=== PATIENT | female | born 1985 | race African-American/Black ===

== ENCOUNTER 2018-12-18 10:00 | Emergency (ER) | payer OTHER ==
[~2018-12-18] VITALS: Ht 175.3 cm; Wt 81.7 kg
[2018-12-18] MEDS ORDERED: HALOPERIDOL 2 MG2 MG PO (10:52)
[2018-12-18] MEDS ORDERED: VISTARIL 25 MG25 M1 PO (10:53)
[2018-12-18] MEDS ORDERED: SEROQUEL XR 20200 MG PO (10:53)
[2018-12-18] MEDS ORDERED: WELLBUTRIN XL300 MG PO (10:54)
[2018-12-18 11:04] LABS: ABSOLUTE NEUTROPHILS 8.5 thou/uL (1.4-8.2); EOSINOPHILS 1.4 % (0.0-3.0); HEMATOCRIT 35.4 % (37.0-47.0); HEMOGLOBIN 11.9 gm/dL (12.0-15.0); MCH 29.2 pg (26.0-34.0); MCHC 33.7 g/dL (28.0-37.0); MCV 86.4 fL (80.0-100.0); MONOCYTES 6.8 % (1.0-8.0); PLATELET COUNT 264 thou/uL (150-400); POLYS 74.8 % (36.0-66.0); WBC 11.4 thou/uL (4.0-11.0)
[2018-12-18 11:09] LABS: URINE BILIRUBIN NEGATIVE (Negative); URINE BLOOD NEGATIVE (Negative); URINE CLARITY CLEAR; URINE COLOR YELLOW; URINE GLUCOSE-RANDOM* NEGATIVE (Negative); URINE KETONES NEGATIVE (Negative); URINE LEUKOCYTES 1+ (Negative); URINE NITRITE NEGATIVE (Negative); URINE PROTEIN (DIPSTICK) NEGATIVE (Negative); URINE UROBILINOGEN 0.2 E.U./dl (0.2-1.0)
[2018-12-18 11:17] LABS: APTT 27.5 Seconds (24.5-32.8); PROTIME 10.3 Seconds (9.3-11.4)
[2018-12-18 11:18] LABS: AMP/METHAMP Negative (Negative); BARBITURATES Negative (Negative); BENZODIAZEPINES Negative (Negative); COCAINE Negative (Negative); METHADONE Negative (Negative); OPIATES Negative (Negative); PCP Negative (Negative)
[2018-12-18 11:22] LABS: ANION GAP 10 mmol/L (7-16); BUN 13 mg/dL (7-18); CALCIUM 9.5 mg/dL (8.5-10.1); CHLORIDE 102 mmol/L (98-107); CO2 27 mmol/L (21-32); CREATININE 1.3 mg/dL (0.6-1.0); GLUCOSE 92 mg/dL (74-106); POTASSIUM 4.5 mmol/L (3.5-5.1); SODIUM 139 mmol/L (136-145)
[2018-12-18 11:26] LABS: SQUAMOUS >10 Many /LPF (0-3)
[2018-12-18 11:27] LABS: BACTERIA 1-9 Few /HPF (None Seen); CASTS None Seen /LPF (None Seen); CRYSTALS None Seen /LPF (None Seen); URINE RBC None Seen /HPF (0-2); URINE WBC 6-15 Few /HPF (0-5)
[2018-12-18 11:32] LABS: ALBUMIN 3.7 g/dL (3.4-5.0); SGOT 11 U/L (15-37); SGPT 13 U/L (30-65); TOTAL BILIRUBIN 0.3 mg/dL (<0.1-1.0); TOTAL PROTEIN 8.2 g/dL (6.4-8.2); TROPONIN-I <0.06 ng/mL (<0.06)
[2018-12-18] MEDS ORDERED: HALOPERIDOL 5 MG5 MG PO (13:22)
[2018-12-18] MEDS ORDERED: QUETIAPINE FUM200 MG PO (13:24)
[2018-12-18] MEDS ORDERED: SPRINTEC1 EACH PO (13:27)
[2018-12-18] MEDS ORDERED: PHARMACY (13:28)
--- NOTE | 2018-12-18 16:26 | EKG ---
[place] [address] [facility] [place] [address] ELECTROCARDIOGRAM REPORT Name: MINNIE LOPEZ Room [facility]: [facility] [id number] ������������������ Admission: 12/18/18 ������������������ Attend Phys: Discharge: ������������������ Date of : 89 Report #: [id number] ����������������������������������������������������������������� [id number] THIS REPORT FOR: //name// [facility] ED Test Date: 2018-12-18 Test Time: 11:07:10 Pat Name: MINNIE LOPEZ Department: Room: Gender: F Concessions Manager: SAUL : 1985 Requested By: Petr Alcazar Order Number: [id number] MD: Hieu Jackson Measurements Intervals [place] Rate: 90 P: 33 IN: 111 QRS: 20 QRSD: 86 T: 18 QT: 361 QTc: 442 Interpretive Statements Sinus rhythm Borderline short IN interval Baseline wander in lead(s) V1 No previous ECG available for comparison Electronically Signed On 12-18-2018 16:26:04 CDT by Hieu Jackson [email or web address] ��������������������������������������������� <ELECTRONICALLY SIGNED> ���������������������������������������� By: Hieu Jackson MD ��������������������������������������������� 12/18/18 1626 [id number] [id number] MD JARROD Baig
[2018-12-18 20:02] VITALS: BP 112/68
--- NOTE | 2018-12-24 12:04 | HC ---
[facility] [place] [address] CONSULTATION Name: MINNIE LOPEZ Room #: DEP MGely#: [id number] Admission: 12/18/18 ������������������ Attend Phys: Discharge: 12/18/18 ������������������ Date of : [birth year] Report #: [id number] THIS REPORT FOR: //name// CC: [facility] physician/PCP Petr Alcazar DATE OF SERVICE: 12/18/2018 HISTORY OF PRESENT ILLNESS: This is a 33-year-old female patient who indicated that she started having some speech difficulty yesterday. She actually said it is going on longer than that, but the family is pretty certain it just happened yesterday. I do not know if it was acute in onset. She was worked up by Emergency Room physician initially. She underwent a CT head and CT angiogram. Emergency Room physician initially did a CT scan of the head, which demonstrated question of lesion, then he did CT angiogram and that was read as some lesions and the diesel bus mechanic did not think that it was typical for stroke. Then, he did an MRI of the brain and then they thought it was consistent with stroke. She does not have much predisposing factor for stroke. REVIEW OF SYSTEMS: Mostly positive for bipolar disorder. She does have a vascular risk factor of smoking, but that is the main risk factor she has. PAST MEDICAL HISTORY: Negative for stroke, but is positive for bipolar disorder. SOCIAL HISTORY: She has a large family here and she smokes. PHYSICAL EXAMINATION: Indicate she is alert. She is markedly aphasic. It takes a lot of effort to bring some words out. That makes the examination very difficult. I believe she has slight facial right side and she has slight weakness on the right side, but position sense appeared to be intact. There is no meningeal sign. There is no carotid bruit in this patient. I reviewed the MRI films myself and then reviewed the films with the radiologist. This is pretty unusual patient. She does have definite abnormality in the brain. They show up on diffusion T2-weighted and ADC maps. They can be stroke, but if they are stroke, then probably embolic. Other etiologies cannot be fully excluded in this patient. If it is a stroke, further workup need to be determined what the etiology of the stroke is. RECOMMENDATIONS: 1. I had asked for a stat echocardiogram with a bubble study. This is to see if she has some obvious pathology like endocarditis, a thrombus or patent foramen ovale, which can cause her these strokes. That has not been done yet. If the echocardiogram does not show any obvious cause for her stroke and we cannot document any atrial fibrillation, then she will need the spinal tap to [address] [address] CONSULTATION Name: MINNIE LOPEZ Room #: DEP JESSE Gonzales#: [id number] Admission: 12/18/18 ������������������ Attend Phys: Discharge: 12/18/18 ������������������ Date of : 89 Report #: [id number] exclude any pathology there. She may or may not need an angiogram to look for vasculitis because CT angiogram does not appear to be showing at least a large vessel disease. The problem we are facing in this patient is that if spinal tap need to be done, she will be predisposed to uncal herniation because of a temporal lobe lesion and we do not have any Neurosurgery backup. If she needs to be anticoagulated for any indication from the heart, she is young, she is female and strokes can become hemorrhagic and we do not have any neurosurgical backup. I discussed that aspect with the family. Presently, she will be stable. We have not been able to do the echocardiogram and I talked to the Emergency Room physician again that we do need the echocardiogram stat in this patient and it was ordered long time ago. They talked about transferring her to [facility] or and the family is aware of that option. Since it is such an unusual case, it will be nice to get those films reviewed by neuroradiologist and patient be seen and managed by somebody sub-specializing in Vascular Neurology. As I understand from them, they are considering transfer and if she is transferred then I will leave the management to them. Otherwise, I would like to give her some fluid to bump up her blood pressure, get an echocardiogram and then decide about the further management. More than 50 minutes of time was spent taking care of this patient today and majority of that time was spent counseling and coordinating the patient's care. ��������������������������������������������� <ELECTRONICALLY SIGNED> ���������������������������������������� By: Tristian Horton MD ��������������������������������������������� 12/24/18 1204 [id number] Tristian Horton MD /nt
== END 2018-12-18 20:04 | disposition short-term general hospital (02) ==
LOC: ER 10:00
PROVIDERS: Emergency Medicine
DX: G93.9 Disorder of brain, unspecified (principal); I63.89 Other cerebral infarction; R41.82 Altered mental status, unspecified; R47.01 Aphasia; R51 Headache; R13.19 Other dysphagia